=== PATIENT | male | born 2000 | race Caucasian/White ===

== ENCOUNTER 2020-11-11 21:37 | Emergency (ER) | payer OTHER ==
[2020-11-12 00:57] LABS: HEMOGLOBIN 16.7 gm/dl (14.0-17.5); RED BLOOD COUNT 5.18 M/UL (4.20-5.50); WHITE BLOOD COUNT 9.7 K/UL (4.5-11.0)
[2020-11-12 01:33] LABS: BUN/CREATININE RATIO 14 (0-10)
== END 2020-11-12 02:10 | disposition home or self-care (01) ==
LOC: ER1 21:37
PROVIDERS: Physician Assistant
DX: R07.89 Other chest pain (principal); R06.02 Shortness of breath; R42 Dizziness and giddiness; F17.220 Nicotine dependence, chewing tobacco, uncomplicated
CPT/HCPCS: 71045; 80053; 82550; 82553; 83874; 84484; 85025; 85379; 93005; 96372; 99285; J1885